=== PATIENT | male | born 2000 ===

== ENCOUNTER 2024-11-07 11:59 | Emergency (ER) | payer SELFPAY ==
[2024-11-07 12:02] VITALS: BP 128/65; PULSE 96; RESP 18; TEMP 36.3; O2SAT 98; BMI 17.6
--- NOTE | 2024-11-07 12:02 | ED_ITS ---
HPI - General Adult General Chief complaint: General Medical Stated complaint: unable to feel l arm Time Seen by Provider: 11/07/24 12:17 Source: patient Mode of arrival: ambulatory Limitations: no limitations History of Present Illness ED Provider: Mali Truong PA-C HPI narrative: 24-year-old male without significant medical history presents to the ED due to 2 days of irritating bump in the left axilla. Patient states he woke up 2 days ago and noticed pain in the left armpit with a very small bump. Patient states he woke up this morning and bump grew in size and has pain when lifting his arm up and when his arm is close to the body putting pressure on the left axilla. Reports taking Tylenol without effect. Related Data Previous Rx's ?Medication ?Instructions ?Recorded cephalexin 500 mg capsule 500 mg PO BID 5 days #10 cap s 11/07/24 doxycycline hyclate 100 mg capsule 100 mg PO BID 5 day s #10 caps 11/07/24 Allergies Allergy/AdvReac Type Severity Reaction Status Date / Time No Known Allergies Allergy Verified 11/07/24 12:05 Review of Systems Review of Systems: CONST: Negative for fever, body aches and chills. HENT: Negative for neck pain/stiffness, headache, congestion, sore throat, swelling. EYES: Negative for discharge/pain or vision changes. RESP: Negative for cough/hemoptysis and shortness of breath. CV: Negative chest pain, difficulty breathing, palpitations. ABD: Negative pain, nausea, vomiting. : Negative increase frequency, dysuria, blood in urine or stool. MUSC: Negative for muscle aches, edema. POS pain in L armpit with small bump SKIN: Negative rash, lesions/sores. NEURO: Negative headache, dizziness, weakness. Yes all other systems are reviewed and are negative PMFSH Past Medical History Attestation statement: The following information was validated with the patient. Source: old records reviewed and nursing notes reviewed Social History Social History Advance Directives: No Advance Directives Information Provided: Yes Do you have a plan to hurt others: No Plan Physical Exam ED Vital Signs: Vital Signs - 24 hr 11/07/24 12:02 Temperature 97.3 F Pulse Rate 96 Respiratory Rate 18 Blood Pressure 128/65 Pulse Oximetry 98 Oxygen Delivery Method Room Air BMI result Body Mass Index 17.6 GENERAL APPEARANCE: ?AxOx4, generally well-appearing, no acute distress. HEENT: ?NC, AT. MMM. EOMI, clear conjunctiva, oropharynx clear. NECK: ?Supple without lymphadenopathy.? No stiffness or restricted ROM. HEART:? Normal rate and regular rhythm, normal S1/S2, no m/r/g LUNGS:? CTAB, moving air well. No crackles or wheezes are heard. ABDOMEN: ?Soft, nontender, nondistended with good bowel sounds heard. BACK: No CVAT, no obvious deformity. EXTREMITIES: ?Without cyanosis, clubbing or edema. L axilla with cyst palpated at the 10 o'clock position, no erythema, cyst is indurated, no active draining, no erythema, no streaking NEUROLOGICAL: ?Grossly nonfocal. Alert and oriented, moving all 4 extremities. Observed to ambulate with normal gait. Skin: ?Warm and dry without any rash. Course Course Course Narrative: This is a rapid medical exam performed by Allyssa Mcgill NP: Additional HPI, ROS, PE not included below will be deferred to primary provider. Patient is a 24y/o M presenting to the ED with complaint of atraumatic left arm pain since yesterday morning. Rates at 6/10, took Tylenol without relief. Starts in axilla and girlfriend states he he has possble abscess to axilla. Medical Decision Making Medical Decision Making MDM Narrative: 24-year-old male without significant medical history presents to the ED due to 2 days of irritating bump in the left axilla. Patient states he woke up 2 days ago and noticed pain in the left armpit with a very small bump. Patient states he woke up this morning and bump grew in size and has pain when lifting his arm up and when his arm is close to the body putting pressure on the left axilla. Reports taking Tylenol without effect. VS on initial observation-normotensive with BP of 128/65, pulse rate 96, respiratory rate of 18, afebrile with oral temp of 97.3?, O2 saturation 98% on room air. On physical exam there is a small cyst at the 10 o'clock position under the left axilla, without erythema, edema, no streaking, not actively draining, cyst is indurated at this time. Patient denies fevers. We will prescribe 7 day course of Keflex and doxycycline to cover for bacterial infection/MRSA Differential Diagnosis Differential Diagnoses: The differential diagnosis associated with the presentation includes Abscess Cyst Contact dermatitis Admission/Observation Consideration of admission/observation: Escalation of care including admission/observation considered External Record Review External record reviewed: Inpatient record, Office record and Outpatient record Discharge Plan Discharge Clinical Impression: Abscess of axilla, left Patient Disposition: Home, Self-Care Instructions: Abscess (ED) Additional Instructions: You were evaluated in the ED due to painful lump under the left armpit. The lump is without redness, swelling, drainage, the lump is hard and not ready for incision and drainage at this time. You are being prescribed a 5 day course of Keflex and doxycycline which are antibiotics to cover for potential infection of the bump. Prescriptions: New cephalexin 500 mg capsule 500 mg PO BID 5 Days Qty: 10 0RF doxycycline hyclate 100 mg capsule 100 mg PO BID 5 Days Qty: 10 0RF Stand Alone Forms: Work/School Release Print Language: Lebanese
[2024-11-07 13:22] VITALS: BP 128/65; PULSE 96; RESP 18; TEMP 36.3; O2SAT 98
== END 2024-11-07 13:22 | disposition home or self-care (01) ==
PROVIDERS: Emergency Provider Emergency Medicine
DX: L02.412 Cutaneous abscess of left axilla (principal)
CPT/HCPCS: 99282; 99283